=== PATIENT | male | born 1940 | race Caucasian/White ===

== ENCOUNTER 2019-09-15 20:48 | Inpatient (IN) | payer MEDICARE, MEDICAID ==
[~2019-09-15] VITALS: Ht 154.9 cm; Wt 50.0 kg
[2019-09-15 06:00] VITALS: BP 123/49
[2019-09-15] MEDS ORDERED: HALOPERIDOL LACTATE 5MG/ML VIAL IM ONE ×2 (21:15→21:20)
[2019-09-15 21:47] LABS: EOSINOPHILS % 1.6 % (0.0-5.0); HEMATOCRIT. 41.8 % (42.0-52.0); HEMOGLOBIN. 14.1 g/dL (14.0-18.0); LYMPHOCYTES % 18.2 % (20.0-50.0); MEAN CORPUSCULAR HEMOGLOBIN 31.2 pg (28.0-32.0); MEAN CORPUSCULAR VOLUME 92.6 fL (80.0-94.0); MEAN PLATELET VOLUME 7.8 fl (7.4-10.4); MONOCYTES % 10.5 % (2.0-8.0); NEUTROPHILS % 68.7 % (40.0-76.0); PLATELET 218 x1000/uL (130-400); RED BLOOD CELL COUNT 4.52 mill/uL (4.7-6.1); RED CELL DISTRIBUTION WIDTH 14.4 % (11.6-14.6)
[2019-09-15 21:53] LABS: PROTHROMBIN TIME 10.7 sec (9.6-11.0)
[2019-09-15 21:54] LABS: CHLORIDE 108 mEq/L (98-107)
[2019-09-15 23:10] LABS: CLARITY URINE CLEAR (CLEAR); COLOR URINE YELLOW (YELLOW); KETONES URINE TRACE (NEGATIVE); LEUKOCYTE ESTERASE URINE NEGATIVE (NEGATIVE); NITRITE URINE NEGATIVE (NEGATIVE); OCCULT BLOOD URINE 3+ (NEGATIVE); PH URINE 6.5 (4.5-8.0); PROTEIN URINE 1+ (NEGATIVE); SPECIFIC GRAVITY URINE 1.019 (1.005-1.030); UROBILINOGEN URINE 0.2 E.U./dL (0.2-1.0)
[2019-09-16] MEDS ORDERED: ACETAMINOPHEN 325MG TABLET PO PRN (00:30)
[2019-09-16] MEDS ORDERED: ONDANSETRON HCL 4MG/2ML INJ IV PRN (00:30)
[2019-09-16] MEDS ORDERED: RISPERIDONE 0.5MG TABLET PO PRN (00:30)
[2019-09-16 04:00] VITALS: BP 123/49
[2019-09-16] MEDS ORDERED: LORA2ORA5 PO (07:04)
[2019-09-16] MEDS ORDERED: SACU1TAB MT (07:04)
[2019-09-16] MEDS ORDERED: DONE10TA43 MT (07:04)
[2019-09-16] MEDS ORDERED: ASPI-1158 MT (07:04)
[2019-09-16] MEDS ORDERED: CARV25TA47 MT (07:04)
[2019-09-16] MEDS ORDERED: ATOR40TA70 MT (07:05)
[2019-09-16 08:00] VITALS: BP 120/57
[2019-09-16] MEDS ORDERED: HEPARIN 5000 UNITS/ML VIAL SUBCUT SCH (09:00)
[2019-09-16 12:00] VITALS: BP 100/48
[2019-09-16] MEDS ORDERED: ASPIRIN 81MG EC TABLET PO SCH (13:00)
[2019-09-16] MEDS ORDERED: RISP05 PO (14:03)
[2019-09-16 16:00] VITALS: BP_SYST 130; BP_SYST 147; BP_DIAS 72; BP_DIAS 90
[2019-09-16 17:35] VITALS: BP 147/90
[2019-09-16] MEDS ORDERED: ATORVASTATIN CALCIUM 40MG TABLET PO SCH (21:00)
== END 2019-09-16 18:20 | disposition home health service (06) | DRG 71 ==
LOC: ER 20:48 → 7WST 23:53 → ENRESERV 09-16 05:05
PROVIDERS: ADMIT Internal Medicine; ATTEND Internal Medicine
DX: G93.40 Encephalopathy, unspecified (principal); I50.22 Chronic systolic (congestive) heart failure; E78.5 Hyperlipidemia, unspecified; F03.90 Unspecified dementia, unspecified severity, without behavioral disturbance, psychotic disturbance, mood disturbance, and anxiety; I11.0 Hypertensive heart disease with heart failure; Z86.73 Personal history of transient ischemic attack (TIA), and cerebral infarction without residual deficits
CPT/HCPCS: 36415; 71045; 80053; 81003; 82962; 83735; 83880; 84484; 85025; 92610; 93005; 97162; 99285; J1630; J1644

== ENCOUNTER 2019-09-20 03:34 | Inpatient (IN) | payer MEDICARE, MEDICAID ==
[~2019-09-20] VITALS: Ht 167.6 cm; Wt 60.3 kg
[~2019-09-20 03:34] MED LIST: ASPI-1158 MT; ATOR40TA70 MT; RISP05 PO
[2019-09-20] MEDS ORDERED: SODIUM CHLORIDE 0.9% 1,000 ML IV ONE (03:51)
[2019-09-20] MEDS ORDERED: LORAZEPAM 2MG/ML CPJ IV STA (03:51)
[2019-09-20] MEDS ORDERED: LORAZEPAM 2MG/ML CPJ ONE (03:54)
[2019-09-20 04:25] LABS: BASOPHILS % 0.7 % (0.0-2.0); EOSINOPHILS % 1.7 % (0.0-5.0); HEMATOCRIT. 42.9 % (42.0-52.0); HEMOGLOBIN. 14.4 g/dL (14.0-18.0); LYMPHOCYTES % 13.7 % (20.0-50.0); MEAN CORPUSCULAR HEMOGLOBIN 31.3 pg (28.0-32.0); MEAN CORPUSCULAR VOLUME 93.5 fL (80.0-94.0); MEAN PLATELET VOLUME 7.9 fl (7.4-10.4); MONOCYTES % 14.3 % (2.0-8.0); NEUTROPHILS % 69.6 % (40.0-76.0); PLATELET 206 x1000/uL (130-400); RED BLOOD CELL COUNT 4.58 mill/uL (4.7-6.1); RED CELL DISTRIBUTION WIDTH 14.3 % (11.6-14.6)
[2019-09-20 04:30] LABS: CHLORIDE 107 mEq/L (98-107)
[2019-09-20 04:36] LABS: ETHANOL BLOOD < 10 mg/dL
[2019-09-20] MEDS ORDERED: SODIUM CHLORIDE 0.9% 1000ML BAG (SEPSIS BOLUS) IV ONE (04:45)
[2019-09-20] MEDS ORDERED: LEVOTHYROXINE SODIUM 25MCG TABLET PO NR (05:15)
[2019-09-20] MEDS ORDERED: LEVETIRACETAM 500MG PREMIX 100 ML IV ONE (05:30)
[2019-09-20 05:51] LABS: CLARITY URINE CLOUDY (CLEAR); COLOR URINE YELLOW (YELLOW); KETONES URINE TRACE (NEGATIVE); LEUKOCYTE ESTERASE URINE TRACE (NEGATIVE); NITRITE URINE NEGATIVE (NEGATIVE); OCCULT BLOOD URINE 2+ (NEGATIVE); PROTEIN URINE 1+ (NEGATIVE); SPECIFIC GRAVITY URINE 1.022 (1.005-1.030); UROBILINOGEN URINE 0.2 E.U./dL (0.2-1.0)
[2019-09-20 06:03] LABS: *AMPHETAMINES SCREEN URINE NEGATIVE (NEGATIVE); *BARBITURATES SCREEN URINE NEGATIVE (NEGATIVE); *BENZODIAZEPINES SCREEN URINE NEGATIVE (NEGATIVE); *COCAINE SCREEN URINE NEGATIVE (NEGATIVE)
[2019-09-20 06:04] LABS: CANNABINOID URINE SCREEN NEGATIVE (NEGATIVE); METHADONE URINE SCREEN NEGATIVE (NEGATIVE); OPIATES URINE SCREEN NEGATIVE (NEGATIVE); PHENCYCLIDINE URINE SCREEN NEGATIVE (NEGATIVE)
[2019-09-20] MEDS ORDERED: SODIUM CHLORIDE 0.9% 1,000 ML IV NR (09:15)
[2019-09-20] MEDS ORDERED: DOCUSATE SODIUM 100MG CAPSULE PO PRN (09:15)
[2019-09-20] MEDS ORDERED: ONDANSETRON HCL 4MG/2ML INJ IV PRN (09:15)
[2019-09-20] MEDS ORDERED: CLONIDINE 0.1MG TABLET PO PRN (09:15)
[2019-09-20] MEDS ORDERED: NITROGLYCERIN 0.4MG TABLET SL SL PRN (09:15)
[2019-09-20] MEDS ORDERED: IPRATROPIUM/ALBUTEROL 0.5-3(2.5)MG/3ML NEB NEB PRN (09:15)
[2019-09-20] MEDS ORDERED: GUAIFENESIN 200MG/10ML SUGAR FREE UDC PO PRN (09:15)
[2019-09-20] MEDS ORDERED: ACETAMINOPHEN 325MG TABLET PO PRN (09:15)
[2019-09-20] MEDS ORDERED: MAGNESIUM/ALUMINUM HYDROXIDE/SIMETHICONE 30ML UDC PO PRN (09:15)
[2019-09-20] MEDS: SODIUM CHLORIDE 0.9% 1,000 ML IV SCH ×2 (10:10→18:57)
[2019-09-20] MEDS ORDERED: ENOXAPARIN 40MG/0.4ML SYR SUBCUT NR (10:45)
[2019-09-20] MEDS ORDERED: LEVOFLOXACIN 500MG PREMIX 100 ML IV NR (10:45)
[2019-09-20 14:40] VITALS: BP 125/63
[2019-09-20 15:30] VITALS: BP 125/63
[2019-09-20 16:00] VITALS: BP 124/62
[2019-09-20] MEDS ORDERED: SACU1TAB PO (17:26)
[2019-09-20] MEDS ORDERED: CARV12.545 PO (17:27)
[2019-09-20] MEDS ORDERED: LORA2DIS6 PO (17:29)
[2019-09-20] MEDS: CEFTRIAXONE 1 G PREMIX 50 ML IV SCH (17:43)
[2019-09-20 20:00] VITALS: BP 140/51
[2019-09-20] MEDS: ZOLPIDEM TARTRATE 5MG TABLET PO PRN (20:02)
[2019-09-20] MEDS: ASCORBIC ACID 500 MG TABLET PO SCH (20:03)
[2019-09-20] MEDS: FAMOTIDINE 20MG TABLET PO SCH (20:03)
[2019-09-20] MEDS: KETOROLAC 15MG/ML VIAL IV PRN (22:04)
[2019-09-21] VITALS (8 sets, daily range): BP systolic 113–162; BP diastolic 53–139
[2019-09-21] MEDS: LEVOTHYROXINE SODIUM 25MCG TABLET PO SCH (06:16)
[2019-09-21] MEDS: SODIUM CHLORIDE 0.9% 1,000 ML IV SCH ×2 (06:16→14:52)
[2019-09-21] MEDS ORDERED: CEFTRIAXONE 1 G PREMIX 50 ML IV SCH (09:00)
[2019-09-21] MEDS ORDERED: LEVOFLOXACIN 500MG PREMIX 100 ML IV SCH (09:15)
[2019-09-21] MEDS: ZINC SULFATE 220 MG ( 50 ) CAPSULE PO SCH (09:31)
[2019-09-21] MEDS: ASPIRIN 325MG EC TABLET PO SCH (09:31)
[2019-09-21] MEDS: ASCORBIC ACID 500 MG TABLET PO SCH ×2 (09:31→21:05)
[2019-09-21 12:20] LABS: CREATINE KINASE MB FRACTION 1.8 ng/mL (0.5-3.6)
[2019-09-21] MEDS: LEVOFLOXACIN 250MG PREMIX 50 ML IV SCH (12:59)
[2019-09-21] MEDS ORDERED: ENOXAPARIN 40MG/0.4ML SYR SUBCUT SCH (13:00)
[2019-09-21] MEDS: KETOROLAC 15MG/ML VIAL IV PRN (14:51)
[2019-09-21] MEDS: CEFTRIAXONE 1 G PREMIX 50 ML IV SCH (17:10)
[2019-09-21] MEDS: FAMOTIDINE 20MG TABLET PO SCH (21:05)
[2019-09-21] MEDS: ZOLPIDEM TARTRATE 5MG TABLET PO PRN (21:05)
[2019-09-22] VITALS: BP 149/68
[2019-09-22 04:00] VITALS: BP 146/69
[2019-09-22] MEDS: KETOROLAC 15MG/ML VIAL IV PRN ×2 (04:15→18:33)
[2019-09-22] MEDS: LEVOTHYROXINE SODIUM 25MCG TABLET PO SCH (06:02)
[2019-09-22] MEDS: SODIUM CHLORIDE 0.9% 1,000 ML IV SCH ×2 (06:02→11:11)
[2019-09-22 06:31] LABS: HEMATOCRIT. 36.5 % (42.0-52.0); HEMOGLOBIN. 12.5 g/dL (14.0-18.0); MEAN CORPUSCULAR HEMOGLOBIN 31.6 pg (28.0-32.0); MEAN CORPUSCULAR VOLUME 92.6 fL (80.0-94.0); MEAN PLATELET VOLUME 7.8 fl (7.4-10.4); PLATELET 185 x1000/uL (130-400); RED BLOOD CELL COUNT 3.94 mill/uL (4.7-6.1); RED CELL DISTRIBUTION WIDTH 14.2 % (11.6-14.6)
[2019-09-22 06:43] LABS: CHLORIDE 115 mEq/L (98-107)
[2019-09-22 06:50] LABS: PHOSPHORUS 2.4 mg/dL (2.5-4.9)
[2019-09-22 08:00] VITALS: BP 144/69
[2019-09-22] MEDS: ASCORBIC ACID 500 MG TABLET PO SCH ×2 (08:35→20:19)
[2019-09-22] MEDS: ASPIRIN 325MG EC TABLET PO SCH (08:35)
[2019-09-22] MEDS: ZINC SULFATE 220 MG ( 50 ) CAPSULE PO SCH (08:35)
[2019-09-22] MEDS ORDERED: ENOXAPARIN 30MG/0.3ML SYR SUBCUT SCH (09:00)
[2019-09-22 14:04] LABS: PLATELET ESTIMATE NORMAL
[2019-09-22] MEDS: LEVOFLOXACIN 250MG PREMIX 50 ML IV SCH (14:35)
[2019-09-22] MEDS: CEFTRIAXONE 1 G PREMIX 50 ML IV SCH (17:09)
[2019-09-22 20:00] VITALS: BP 130/64
[2019-09-22] MEDS: ZOLPIDEM TARTRATE 5MG TABLET PO PRN (20:18)
[2019-09-22] MEDS: FAMOTIDINE 20MG TABLET PO SCH (20:19)
[2019-09-23] VITALS: BP 101/68
[2019-09-23] MEDS: SODIUM CHLORIDE 0.9% 1,000 ML IV SCH ×2 (01:18→07:06)
[2019-09-23 04:00] VITALS: BP 151/65
[2019-09-23] MEDS: LEVOTHYROXINE SODIUM 25MCG TABLET PO SCH (06:08)
[2019-09-23 08:00] VITALS: BP 151/76
[2019-09-23] MEDS: ASCORBIC ACID 500 MG TABLET PO SCH (08:34)
[2019-09-23] MEDS: ZINC SULFATE 220 MG ( 50 ) CAPSULE PO SCH (08:34)
[2019-09-23] MEDS: ASPIRIN 325MG EC TABLET PO SCH (08:34)
[2019-09-23] MEDS ORDERED: ENOXAPARIN 40MG/0.4ML SYR SUBCUT SCH (09:00)
[2019-09-23 11:53] VITALS: BP 151/76
[2019-09-23 12:00] VITALS: BP 101/66
[2019-09-23] MEDS: LEVOFLOXACIN 250MG PREMIX 50 ML IV SCH (13:30)
[2019-09-23 16:00] VITALS: BP 101/68
[2019-09-23] MEDS: CEFTRIAXONE 1 G PREMIX 50 ML IV SCH (16:00)
[2019-09-24] MEDS ORDERED: LEVOFLOXACIN 250MG TABLET PO SCH (11:00)
== END 2019-09-23 18:10 | disposition home health service (06) | DRG 871 ==
LOC: ER 03:34 → 5WST 05:58 → SUPCPDRO 09:04 → ENRESERV 12:44
PROVIDERS: ADMIT Internal Medicine; ATTEND Internal Medicine
DX: A41.9 Sepsis, unspecified organism (principal); G92 Toxic encephalopathy; R65.21 Severe sepsis with septic shock; N17.9 Acute kidney failure, unspecified; F03.90 Unspecified dementia, unspecified severity, without behavioral disturbance, psychotic disturbance, mood disturbance, and anxiety; I11.0 Hypertensive heart disease with heart failure; I50.9 Heart failure, unspecified; E03.9 Hypothyroidism, unspecified; R56.9 Unspecified convulsions; Z86.73 Personal history of transient ischemic attack (TIA), and cerebral infarction without residual deficits; Z95.0 Presence of cardiac pacemaker; Z79.899 Other long term (current) drug therapy
CPT/HCPCS: 36415; 71045; 80053; 80061; 80305; 80320; 81003; 82140; 82550; 82553; 82607; 82746; 82962; 83036; 83605; 83735; 84100; 84443; 84484; 85025; 93005; 93306; 93970; 97163; 97530; 99291; J0696; J1650; J1885; J1953; J1956; J2060; J7030; A4315; G0480

== ENCOUNTER 2019-09-27 16:49 | Inpatient (IN) | payer MEDICARE, MEDICAID ==
[~2019-09-27] VITALS: Ht 172.7 cm; Wt 62.9 kg
[~2019-09-27 16:49] MED LIST changes: +CARV12.545 PO; +LORA2DIS6 PO; +SACU1TAB PO
[2019-09-27] MEDS ORDERED: LEVETIRACETAM 500MG PREMIX 100 ML IV ONE ×2 (17:30)
[2019-09-27 17:37] LABS: BASOPHILS % 0.7 % (0.0-2.0); HEMOGLOBIN. 13.4 g/dL (14.0-18.0); LYMPHOCYTES % 11.9 % (20.0-50.0); MEAN CORPUSCULAR HEMOGLOBIN 31.3 pg (28.0-32.0); MEAN CORPUSCULAR VOLUME 93.1 fL (80.0-94.0); MEAN PLATELET VOLUME 7.5 fl (7.4-10.4); MONOCYTES % 13.6 % (2.0-8.0); NEUTROPHILS % 72.8 % (40.0-76.0); PLATELET 253 x1000/uL (130-400); RED CELL DISTRIBUTION WIDTH 14.3 % (11.6-14.6)
[2019-09-27 17:37] LABS: BG BASE EXCESS -0.8 mmol/L (-2.0-2.0); BG CARBOXYHEMOGLOBIN 0.2 % (0.5-1.5); BG DEOXYHEMOGLOBIN 0.7 % (0.0-5.0); BG FRACTION INSPIRED OXYGEN 100; BG HCO3 ACT 23.6 mmol/L (22.0-26.0); BG METHEMOGLOBIN 0.3 % (0.0-1.5); BG OXYGEN SATURATION 99.3 % (92.0-98.5); BG OXYHEMOGLOBIN 98.8 % (94.0-97.0); BG PCO2 38.1 mmHg (35.0-45.0); BG PO2 308.3 mmHg (75.0-100.0); BG SAMPLE SITE RIGHT BRACHIAL; BG TOTAL HEMOGLOBIN 13.3 g/dL (12.0-18.0); BG VENT MODE MASK - NRB
[2019-09-27 17:42] LABS: CHLORIDE 108 mEq/L (98-107)
[2019-09-27 17:47] LABS: ETHANOL BLOOD < 10 mg/dL
[2019-09-27 19:18] LABS: CLARITY URINE CLEAR (CLEAR); COLOR URINE YELLOW (YELLOW); KETONES URINE TRACE (NEGATIVE); LEUKOCYTE ESTERASE URINE NEGATIVE (NEGATIVE); NITRITE URINE NEGATIVE (NEGATIVE); OCCULT BLOOD URINE 2+ (NEGATIVE); PROTEIN URINE 1+ (NEGATIVE); SPECIFIC GRAVITY URINE 1.022 (1.005-1.030); UROBILINOGEN URINE 0.2 E.U./dL (0.2-1.0)
[2019-09-27] MEDS ORDERED: DIPHENHYDRAMINE 50MG/ML VIAL IV PRN (19:45)
[2019-09-27] MEDS ORDERED: CLONIDINE 0.1MG TABLET PO PRN (19:45)
[2019-09-27] MEDS ORDERED: LORAZEPAM 2MG/ML CPJ IV PRN (19:45)
[2019-09-27] MEDS ORDERED: ACETAMINOPHEN 325MG TABLET PO PRN (19:45)
[2019-09-27] MEDS ORDERED: ONDANSETRON HCL 4MG/2ML INJ IV PRN (19:45)
[2019-09-27] MEDS ORDERED: IPRATROPIUM/ALBUTEROL 0.5-3(2.5)MG/3ML NEB HHN PRN (19:45)
[2019-09-27] MEDS ORDERED: GUAIFENESIN 200MG/10ML SUGAR FREE UDC PO PRN (19:45)
[2019-09-27 19:48] LABS: *AMPHETAMINES SCREEN URINE NEGATIVE (NEGATIVE); *BARBITURATES SCREEN URINE NEGATIVE (NEGATIVE); *BENZODIAZEPINES SCREEN URINE PRESUMTIVE POSITIVE (NEGATIVE); *COCAINE SCREEN URINE NEGATIVE (NEGATIVE); METHADONE URINE SCREEN NEGATIVE (NEGATIVE); OPIATES URINE SCREEN PRESUMTIVE POSITIVE (NEGATIVE); PHENCYCLIDINE URINE SCREEN NEGATIVE (NEGATIVE)
[2019-09-27 19:49] LABS: CANNABINOID URINE SCREEN NEGATIVE (NEGATIVE)
[2019-09-27 20:02] LABS: PHOSPHORUS 2.3 mg/dL (2.5-4.9)
[2019-09-28] VITALS (9 sets, daily range): BP systolic 112–141; BP diastolic 55–79
[2019-09-28] MEDS ORDERED: LEVETIRACETAM 500MG PREMIX 100 ML IV SCH ×2 (09:00)
[2019-09-28 09:38] LABS: HEMATOCRIT. 37.8 % (42.0-52.0); MEAN CORPUSCULAR HEMOGLOBIN 31.7 pg (28.0-32.0); MEAN CORPUSCULAR VOLUME 92.5 fL (80.0-94.0); MEAN PLATELET VOLUME 7.5 fl (7.4-10.4); PLATELET 245 x1000/uL (130-400); RED BLOOD CELL COUNT 4.09 mill/uL (4.7-6.1); RED CELL DISTRIBUTION WIDTH 14.1 % (11.6-14.6)
[2019-09-28] MEDS: ENOXAPARIN 40MG/0.4ML SYR SUBCUT SCH (09:45)
[2019-09-28 10:00] LABS: CHLORIDE 110 mEq/L (98-107)
[2019-09-28 10:02] LABS: CREATINE KINASE MB FRACTION 1.8 ng/mL (0.5-3.6)
[2019-09-28 10:07] LABS: LDL CHOLESTEROL 75 mg/dL (5-100)
[2019-09-28 10:08] LABS: HDL CHOLESTEROL 47 mg/dL (40-59)
[2019-09-28 11:00] LABS: PLATELET ESTIMATE NORMAL
[2019-09-28] MEDS ORDERED: RISPERIDONE 0.5MG TABLET PO PRN (11:15)
[2019-09-28] MEDS ORDERED: LORAZEPAM 2MG/ML CPJ IV PRN (11:45)
[2019-09-28] MEDS: SODIUM CHLORIDE 0.9% 1,000 ML IV SCH (14:58)
[2019-09-28] MEDS: CARVEDILOL 12.5MG TABLET PO SCH (17:00)
[2019-09-28] MEDS: ATORVASTATIN CALCIUM 40MG TABLET PO SCH (21:00)
[2019-09-28] MEDS: SACUBITRIL/VALSARTAN 24/26 TAB PO SCH (21:00)
[2019-09-28] MEDS ORDERED: LEVO500T89 PO (21:21)
[2019-09-28] MEDS: LEVETIRACETAM 500MG in SODIUM CHLORIDE 0.9% 100ML IV SCH (22:05)
[2019-09-29] VITALS (12 sets, daily range): BP systolic 121–155; BP diastolic 57–75
[2019-09-29 07:08] LABS: BASOPHILS % 0.9 % (0.0-2.0); EOSINOPHILS % 2.9 % (0.0-5.0); HEMATOCRIT. 36.5 % (42.0-52.0); HEMOGLOBIN. 12.6 g/dL (14.0-18.0); LYMPHOCYTES % 16.2 % (20.0-50.0); MEAN CORPUSCULAR HEMOGLOBIN 32.1 pg (28.0-32.0); MEAN PLATELET VOLUME 7.7 fl (7.4-10.4); MONOCYTES % 13.6 % (2.0-8.0); NEUTROPHILS % 66.4 % (40.0-76.0); PLATELET 223 x1000/uL (130-400); RED BLOOD CELL COUNT 3.92 mill/uL (4.7-6.1); RED CELL DISTRIBUTION WIDTH 14.2 % (11.6-14.6)
[2019-09-29] MEDS: SODIUM CHLORIDE 0.9% 1,000 ML IV SCH ×2 (07:15→14:05)
[2019-09-29 07:40] LABS: CHLORIDE 111 mEq/L (98-107)
[2019-09-29 07:48] LABS: PHOSPHORUS 2.9 mg/dL (2.5-4.9); TOTAL IRON BINDING CAPACITY 318 ug/dL (250-450)
[2019-09-29] MEDS: LEVETIRACETAM 500MG in SODIUM CHLORIDE 0.9% 100ML IV SCH (08:18)
[2019-09-29] MEDS: ENOXAPARIN 40MG/0.4ML SYR SUBCUT SCH (08:18)
[2019-09-29] MEDS: SACUBITRIL/VALSARTAN 24/26 TAB PO SCH ×2 (09:00→20:15)
[2019-09-29] MEDS: ASPIRIN 81MG EC TABLET PO SCH (09:00)
[2019-09-29] MEDS: CARVEDILOL 12.5MG TABLET PO SCH ×2 (09:00→17:00)
[2019-09-29] MEDS ORDERED: POTASSIUM CHLORIDE 20MEQ/PACKET PO NR (10:00)
[2019-09-29] MEDS: KCL 20MEQ/100ML PREMIX 100 ML IV SCH ×2 (16:31→20:12)
[2019-09-29] MEDS: LEVETIRACETAM 500MG PREMIX 100 ML IV SCH (20:13)
[2019-09-29] MEDS: ATORVASTATIN CALCIUM 40MG TABLET PO SCH (20:15)
[2019-09-30] VITALS (12 sets, daily range): BP systolic 110–144; BP diastolic 57–76
[2019-09-30 07:17] LABS: BASOPHILS % 0.8 % (0.0-2.0); EOSINOPHILS % 3.7 % (0.0-5.0); HEMATOCRIT. 37.3 % (42.0-52.0); HEMOGLOBIN. 12.9 g/dL (14.0-18.0); MEAN CORPUSCULAR HEMOGLOBIN 31.8 pg (28.0-32.0); MEAN PLATELET VOLUME 7.6 fl (7.4-10.4); MONOCYTES % 13.3 % (2.0-8.0); NEUTROPHILS % 67.2 % (40.0-76.0); PLATELET 251 x1000/uL (130-400); RED BLOOD CELL COUNT 4.05 mill/uL (4.7-6.1)
[2019-09-30 07:51] LABS: CHLORIDE 110 mEq/L (98-107)
[2019-09-30] MEDS: ASPIRIN 81MG EC TABLET PO SCH (09:00)
[2019-09-30] MEDS: SACUBITRIL/VALSARTAN 24/26 TAB PO SCH ×2 (09:00→20:09)
[2019-09-30] MEDS: CARVEDILOL 12.5MG TABLET PO SCH ×2 (09:00→17:00)
[2019-09-30] MEDS: LEVETIRACETAM 500MG PREMIX 100 ML IV SCH (09:42)
[2019-09-30] MEDS: ENOXAPARIN 40MG/0.4ML SYR SUBCUT SCH (09:42)
[2019-09-30] MEDS: LEVETIRACETAM 750 MG in SODIUM CHLORIDE 0.9% 100 ML IV SCH ×2 (12:13→21:19)
[2019-09-30] MEDS: SODIUM CHLORIDE 0.9% 1,000 ML IV SCH (17:16)
[2019-09-30] MEDS: ATORVASTATIN CALCIUM 40MG TABLET PO SCH (20:09)
[2019-10-01] VITALS (10 sets, daily range): BP systolic 103–154; BP diastolic 44–73
[2019-10-01 06:45] LABS: CHLORIDE 109 mEq/L (98-107)
[2019-10-01 06:53] LABS: HEMATOCRIT. 39.9 % (42.0-52.0); HEMOGLOBIN. 13.8 g/dL (14.0-18.0); MEAN CORPUSCULAR HEMOGLOBIN 31.7 pg (28.0-32.0); MEAN CORPUSCULAR VOLUME 91.9 fL (80.0-94.0); MEAN PLATELET VOLUME 7.9 fl (7.4-10.4); PLATELET 245 x1000/uL (130-400); RED BLOOD CELL COUNT 4.34 mill/uL (4.7-6.1); RED CELL DISTRIBUTION WIDTH 13.6 % (11.6-14.6)
[2019-10-01] MEDS ORDERED: FERROUS SULFATE 325MG TABLET PO SCH (07:20)
[2019-10-01] MEDS ORDERED: ASCORBIC ACID 250 MG TABLET PO SCH (07:20)
[2019-10-01] MEDS: SACUBITRIL/VALSARTAN 24/26 TAB PO SCH (09:00)
[2019-10-01] MEDS: CARVEDILOL 12.5MG TABLET PO SCH (09:15)
[2019-10-01] MEDS: ASPIRIN 81MG EC TABLET PO SCH (09:15)
[2019-10-01] MEDS: ENOXAPARIN 40MG/0.4ML SYR SUBCUT SCH (09:16)
[2019-10-01] MEDS: LEVETIRACETAM 750 MG in SODIUM CHLORIDE 0.9% 100 ML IV SCH (09:16)
[2019-10-01 14:28] LABS: PLATELET ESTIMATE NORMAL
== END 2019-10-01 16:54 | DRG 101 ==
LOC: ER 16:49 → 3WST 18:43 → EDBEDREQ 19:08 → EDBEDREQTM 19:08 → ENRESERV 09-28 02:49 → 3WST 09-28 09:08
PROVIDERS: ADMIT Internal Medicine; ATTEND Internal Medicine
DX: G40.401 Other generalized epilepsy and epileptic syndromes, not intractable, with status epilepticus (principal); I42.0 Dilated cardiomyopathy; E87.2 Acidosis; I50.22 Chronic systolic (congestive) heart failure; F03.90 Unspecified dementia, unspecified severity, without behavioral disturbance, psychotic disturbance, mood disturbance, and anxiety; I11.0 Hypertensive heart disease with heart failure; E83.39 Other disorders of phosphorus metabolism; D72.821 Monocytosis (symptomatic); D64.9 Anemia, unspecified; R31.9 Hematuria, unspecified; R80.9 Proteinuria, unspecified; E78.00 Pure hypercholesterolemia, unspecified; Z86.73 Personal history of transient ischemic attack (TIA), and cerebral infarction without residual deficits; Z95.0 Presence of cardiac pacemaker; Z79.899 Other long term (current) drug therapy
CPT/HCPCS: 36415; 36600; 71045; 80048; 80053; 80061; 80305; 80307; 80320; 80329; 81003; 82140; 82375; 82550; 82553; 82728; 82805; 83540; 83550; 83605; 83735; 83880; 84100; 84443; 84484; 85025; 92610; 93005; 93970; 96365; 97162; 97166; 99291; J1650; J1953; J3480; J7030; J7050; G0480

== ENCOUNTER 2023-07-28 17:17 | Inpatient (IN) | payer MEDICARE, MEDICAID ==
[~2023-07-28] VITALS: Ht 167.6 cm; Wt 55.5 kg
[~2023-07-28 17:17] MED LIST changes: -ASPI-1158 MT; +ASPI-1406 MT; +LEVO-65 PO
[2023-07-28] MEDS ORDERED: ACETAMINOPHEN 325MG TABLET PO STA (17:24)
[2023-07-28] MEDS ORDERED: ACETAMINOPHEN 650MG SUPP PR STA (17:24)
[2023-07-28] MEDS ORDERED: VANCOMYCIN 1G PREMIX 200 ML IV ONE (17:30)
[2023-07-28] MEDS ORDERED: PIPERACILLIN/TAZ 3.375G PREMIX 50 ML IV ONE (17:30)
[2023-07-28] MEDS ORDERED: SODIUM CHLORIDE 0.9% 1,000 ML IV ONE (17:45)
[2023-07-28] MEDS ORDERED: VANCOMYCIN 1G PREMIX 200 ML IV NR (19:00)
[2023-07-28] MEDS ORDERED: PIPERACILLIN/TAZ 3.375G PREMIX 50 ML IV NR (19:00)
[2023-07-28 19:18] LABS: HEMOGLOBIN. 11.9 g/dL (14.0-18.0); MEAN CORPUSCULAR HEMOGLOBIN 29.9 pg (28.0-32.0); MEAN CORPUSCULAR HGB CONC 32.1 g/dL (31.0-37.0); MEAN CORPUSCULAR VOLUME 93.1 fL (80.0-94.0); MEAN PLATELET VOLUME 7.5 fl (7.4-10.4); PLATELET 270 x1000/uL (130-400); RED BLOOD CELL COUNT 3.97 mill/uL (4.7-6.1); RED CELL DISTRIBUTION WIDTH 13.8 % (11.6-14.6); WHITE BLOOD COUNT 6.3 x1000/uL (4.5-11.0)
[2023-07-28 19:19] LABS: DIFFERENTIAL COMMENT 1
[2023-07-28 19:36] LABS: ALANINE AMINOTRANSFERASE 18 IU/L (10-49); ALBUMIN 4.1 g/dL (3.2-4.8); ASPARTATE AMINOTRANSFERASE 25 IU/L (<34); BILIRUBIN TOTAL 0.5 mg/dL (0.1-1.0); CALCIUM 9.2 mg/dL (8.7-10.4); CARBON DIOXIDE 26 mEq/L (21-32); CHLORIDE 104 mEq/L (98-107); CREATINE KINASE 311 IU/L (46-171); CREATININE 1.4 mg/dL (0.6-1.3); ETHANOL BLOOD < 10 mg/dL (<10); GLUCOSE 97 mg/dL (70-105); POTASSIUM 4.6 mEq/L (3.5-5.1); PROTEIN TOTAL 7.7 g/dL (6.0-8.3); SODIUM 139 mEq/L (136-145); UREA NITROGEN BLOOD 15 mg/dL (9-23)
[2023-07-28 19:38] LABS: LACTIC ACID 2.2 mmol/L (0.4-2.0)
[2023-07-28 19:59] LABS: AMMONIA 25 uMol/L (<32)
[2023-07-28 23:05] LABS: PLATELET ESTIMATE NORMAL
[2023-07-29] VITALS (19 sets, daily range): BP systolic 87–142; BP diastolic 49–107; PULSE 60–80; RESP 12–21; TEMP 97.8–98.7
[2023-07-29] MEDS ORDERED: ACETAMINOPHEN 650MG SUPP PR NR (04:45)
[2023-07-29 05:54] LABS: *AMPHETAMINES SCREEN URINE NEGATIVE (NEGATIVE); *BARBITURATES SCREEN URINE NEGATIVE (NEGATIVE); *BENZODIAZEPINES SCREEN URINE NEGATIVE (NEGATIVE); *COCAINE SCREEN URINE NEGATIVE (NEGATIVE); CANNABINOID URINE SCREEN NEGATIVE (NEGATIVE); ECSTASY MDMA SCREEN URINE NEGATIVE (NEGATIVE); METHADONE URINE SCREEN Neg (NEGATIVE); OPIATES URINE SCREEN NEGATIVE (NEGATIVE); PHENCYCLIDINE URINE SCREEN NEGATIVE (NEGATIVE)
[2023-07-29 06:07] LABS: CLARITY URINE CLEAR (CLEAR); COLOR URINE YELLOW (YELLOW)
[2023-07-29 06:08] LABS: SPECIFIC GRAVITY URINE 1.015 (1.005-1.030)
[2023-07-29 06:24] LABS: PROTEIN URINE 1+ (NEGATIVE)
[2023-07-29 06:25] LABS: GLUCOSE URINE NEGATIVE (NEGATIVE); KETONES URINE NEGATIVE (NEGATIVE); LEUKOCYTE ESTERASE URINE NEGATIVE (NEGATIVE); NITRITE URINE NEGATIVE (NEGATIVE); OCCULT BLOOD URINE 2+ (NEGATIVE); UROBILINOGEN URINE 0.2 E.U./dL (0.2-1.0)
[2023-07-29 07:19] LABS: SQUAMOUS EPITHELIAL CELL URINE FEW /lpf (RARE/1+)
[2023-07-29 07:20] LABS: BACTERIA URINE NONE SEEN; RBC URINE 0-2 /hpf (0-2)
[2023-07-29] MEDS: CARVEDILOL 6.25 MG TABLET PO SCH ×2 (09:00→21:00)
[2023-07-29] MEDS: ASPIRIN 81MG EC TABLET PO SCH (09:00)
[2023-07-29] MEDS ORDERED: NOREPINEPHRINE 8MG/250ML PMX 250 ML IV PRN (10:30)
[2023-07-29] MEDS ORDERED: ENOXAPARIN 40MG/0.4ML SYR SUBCUT SCH (11:30)
[2023-07-29] MEDS ORDERED: IPRATROPIUM/ALBUTEROL 0.5-3(2.5)MG/3ML NEB NEB PRN (11:30)
[2023-07-29] MEDS ORDERED: ONDANSETRON HCL 4MG/2ML INJ IV PRN (11:30)
[2023-07-29] MEDS: DEXT 5%/0.45% NACL 1000ML 1,000 ML IV SCH (11:54)
[2023-07-29] MEDS: ENOXAPARIN 30MG/0.3ML SYR SUBCUT SCH (12:00)
[2023-07-29] MEDS ORDERED: ALBUTEROL 6.7GM HFA INHALER ORI PRN (13:30)
[2023-07-29] MEDS: ATORVASTATIN CALCIUM 40MG TABLET PO SCH (21:18)
[2023-07-30] VITALS (39 sets, daily range): BP systolic 80–127; BP diastolic 47–84; PULSE 60–70; RESP 11–21; TEMP 97.5–98.7
[2023-07-30 00:40] LABS: CALCIUM 8.5 mg/dL (8.7-10.4); CREATININE 1.3 mg/dL (0.6-1.3); POTASSIUM 4.2 mEq/L (3.5-5.1)
[2023-07-30 01:20] LABS: HEPATITIS B SURFACE ANTIGEN NEGATIVE (Negative); HEPATITIS C AB NON REACTIVE (Neg) (Negative)
[2023-07-30 05:07] LABS: BASOPHILS % 0.1 % (0.0-2.0); HEMATOCRIT. 34.7 % (42.0-52.0); HEMOGLOBIN. 11.6 g/dL (14.0-18.0); LYMPHOCYTES % 7.3 % (20.0-50.0); MEAN CORPUSCULAR HEMOGLOBIN 30.5 pg (28.0-32.0); MEAN CORPUSCULAR HGB CONC 33.4 g/dL (31.0-37.0); MEAN CORPUSCULAR VOLUME 91.4 fL (80.0-94.0); MEAN PLATELET VOLUME 7.5 fl (7.4-10.4); MONOCYTES % 8.6 % (2.0-8.0); PLATELET 253 x1000/uL (130-400); RED BLOOD CELL COUNT 3.79 mill/uL (4.7-6.1); RED CELL DISTRIBUTION WIDTH 13.8 % (11.6-14.6); WHITE BLOOD COUNT 7.3 x1000/uL (4.5-11.0)
[2023-07-30 05:58] LABS: TROPONIN I HIGH SENSITIVITY 81 ng/L (3.0-53)
[2023-07-30] MEDS: CARVEDILOL 6.25 MG TABLET PO SCH (08:50)
[2023-07-30] MEDS: ASPIRIN 81MG EC TABLET PO SCH (08:51)
[2023-07-30 09:55] LABS: CALCIUM 8.4 mg/dL (8.7-10.4); CARBON DIOXIDE 25 mEq/L (21-32); CHLORIDE 106 mEq/L (98-107); CREATININE 1.4 mg/dL (0.6-1.3); GLUCOSE 115 mg/dL (70-105); POTASSIUM 3.8 mEq/L (3.5-5.1); SODIUM 142 mEq/L (136-145); T4 FREE 0.95 ng/dL (0.89-1.76); THYROID STIMULATING HORMONE 7.07 uIU/mL (0.55-4.78); UREA NITROGEN BLOOD 20 mg/dL (9-23)
[2023-07-30] MEDS ORDERED: DEXAMETHASONE 4MG/ML 1ML VIAL IV NR (10:15)
[2023-07-30] MEDS ORDERED: ALBUMIN HUMAN 12.5G/250ML (5%) IV PRN (10:15)
[2023-07-30] MEDS ORDERED: AZITHROMYCIN 500 MG TABLET PO NR (10:30)
[2023-07-30] MEDS: DEXT 5%/0.45% NACL 1000ML 1,000 ML IV SCH ×2 (10:30→23:59)
[2023-07-30] MEDS ORDERED: CEFTRIAXONE 2GM/50ML (ADDEASE) 50 ML IV SCH (10:30)
[2023-07-30] MEDS: ENOXAPARIN 30MG/0.3ML SYR SUBCUT SCH (11:14)
[2023-07-30] MEDS: CEFTRIAXONE 2 G in DEXTROSE 5% WATER 50 ML IV SCH (11:17)
[2023-07-30] MEDS ORDERED: VANCOMYCIN 750MG PREMIX 150 ML IV SCH (16:00)
[2023-07-30] MEDS: ATORVASTATIN CALCIUM 40MG TABLET PO SCH (20:40)
[2023-07-30] MEDS ORDERED: ATORVASTATIN CALCIUM 40MG TABLET PO SCH (21:00)
[2023-07-31] VITALS (71 sets, daily range): BP systolic 68–152; BP diastolic 42–82; PULSE 59–70; RESP 10–23; TEMP 96.7–98.5
[2023-07-31] MEDS ORDERED: NOREPINEPHRINE 8MG/250ML PMX 250 ML IV PRN (00:35)
[2023-07-31 05:37] LABS: ALANINE AMINOTRANSFERASE 80 IU/L (10-49); ALBUMIN 3.3 g/dL (3.2-4.8); ASPARTATE AMINOTRANSFERASE 155 IU/L (<34); BILIRUBIN TOTAL 0.6 mg/dL (0.1-1.0); CALCIUM 8.4 mg/dL (8.7-10.4); CARBON DIOXIDE 24 mEq/L (21-32); CHLORIDE 107 mEq/L (98-107); CREATININE 1.1 mg/dL (0.6-1.3); GLUCOSE 236 mg/dL (70-105); POTASSIUM 3.3 mEq/L (3.5-5.1); PROTEIN TOTAL 6.2 g/dL (6.0-8.3); SODIUM 140 mEq/L (136-145); UREA NITROGEN BLOOD 25 mg/dL (9-23)
[2023-07-31 05:40] LABS: HEMOGLOBIN. 10.8 g/dL (14.0-18.0); MEAN CORPUSCULAR HEMOGLOBIN 30.1 pg (28.0-32.0); MEAN CORPUSCULAR HGB CONC 32.9 g/dL (31.0-37.0); MEAN CORPUSCULAR VOLUME 91.6 fL (80.0-94.0); MEAN PLATELET VOLUME 7.9 fl (7.4-10.4); PLATELET 270 x1000/uL (130-400)
[2023-07-31 08:33] LABS: DIFFERENTIAL COMMENT 1
[2023-07-31] MEDS: DEXAMETHASONE 4MG/ML 1ML VIAL IV SCH (08:48)
[2023-07-31] MEDS: AZITHROMYCIN 500 MG TABLET PO SCH (08:48)
[2023-07-31] MEDS: ASPIRIN 81MG EC TABLET PO SCH (08:48)
[2023-07-31] MEDS: VANCOMYCIN 500MG PREMIX 100 ML IV SCH ×2 (08:52→20:12)
[2023-07-31] MEDS ORDERED: ASPIRIN 81MG EC TABLET PO SCH (09:00)
[2023-07-31] MEDS ORDERED: LIDOCAINE HCL 1% 10 MG/ML 10ML VIAL ONE (09:12)
[2023-07-31] MEDS ORDERED: POTASSIUM CHLORIDE 20MEQ/PACKET PO NR (09:45)
[2023-07-31] MEDS: CEFTRIAXONE 2 G in DEXTROSE 5% WATER 50 ML IV SCH (12:41)
[2023-07-31] MEDS: MIDODRINE HCL 5MG TABLET PO SCH ×2 (12:41→16:55)
[2023-07-31] MEDS: ENOXAPARIN 30MG/0.3ML SYR SUBCUT SCH (12:42)
[2023-07-31 14:13] LABS: PLATELET ESTIMATE NORMAL
[2023-07-31] MEDS: DEXT 5%/0.45% NACL 1000ML 1,000 ML IV SCH (18:19)
[2023-07-31] MEDS: ATORVASTATIN CALCIUM 40MG TABLET PO SCH (20:12)
[2023-08-01] VITALS (14 sets, daily range): BP systolic 97–150; BP diastolic 56–128; PULSE 59–68; RESP 12–23; TEMP 97.4–98.9
[2023-08-01 05:18] LABS: HEMATOCRIT. 31.2 % (42.0-52.0); HEMOGLOBIN. 10.3 g/dL (14.0-18.0); MEAN CORPUSCULAR HEMOGLOBIN 30.6 pg (28.0-32.0); MEAN CORPUSCULAR VOLUME 92.7 fL (80.0-94.0); MEAN PLATELET VOLUME 7.9 fl (7.4-10.4); PLATELET 245 x1000/uL (130-400); RED BLOOD CELL COUNT 3.36 mill/uL (4.7-6.1); RED CELL DISTRIBUTION WIDTH 13.9 % (11.6-14.6); WHITE BLOOD COUNT 8.8 x1000/uL (4.5-11.0)
[2023-08-01 05:49] LABS: DIFFERENTIAL COMMENT 1
[2023-08-01 05:50] LABS: CALCIUM 8.5 mg/dL (8.7-10.4); CARBON DIOXIDE 25 mEq/L (21-32); CHLORIDE 107 mEq/L (98-107); GLUCOSE 117 mg/dL (70-105); POTASSIUM 3.8 mEq/L (3.5-5.1); SODIUM 141 mEq/L (136-145); UREA NITROGEN BLOOD 23 mg/dL (9-23)
[2023-08-01] MEDS: DEXT 5%/0.45% NACL 1000ML 1,000 ML IV SCH (06:12)
[2023-08-01] MEDS: ASPIRIN 81MG EC TABLET PO SCH (08:21)
[2023-08-01] MEDS: AZITHROMYCIN 500 MG TABLET PO SCH (08:21)
[2023-08-01] MEDS: DEXAMETHASONE 4MG/ML 1ML VIAL IV SCH (08:21)
[2023-08-01] MEDS: VANCOMYCIN 500MG PREMIX 100 ML IV SCH (08:21)
[2023-08-01] MEDS: MIDODRINE HCL 5MG TABLET PO SCH ×3 (08:21→16:47)
[2023-08-01 09:02] LABS: HEMATOCRIT 31.1 % (42.0-52.0); HEMOGLOBIN 10.5 g/dL (14.0-18.0); MEAN CORPUSCULAR HEMOGLOBIN 30.4 pg (28.0-32.0); MEAN CORPUSCULAR HGB CONC 33.9 g/dL (31.0-37.0); MEAN CORPUSCULAR VOLUME 89.7 fL (80.0-94.0); PLATELET 247 x1000/uL (130-400); RED BLOOD CELL COUNT 3.47 mill/uL (4.7-6.1); WHITE BLOOD COUNT 8.5 x1000/uL (4.5-11.0)
[2023-08-01] MEDS: ENOXAPARIN 30MG/0.3ML SYR SUBCUT SCH (11:29)
[2023-08-01] MEDS: CEFTRIAXONE 2 G in DEXTROSE 5% WATER 50 ML IV SCH (11:29)
[2023-08-01 14:22] LABS: PLATELET ESTIMATE NORMAL
[2023-08-01] MEDS: ATORVASTATIN CALCIUM 40MG TABLET PO SCH (22:43)
[2023-08-02] VITALS (11 sets, daily range): BP systolic 111–134; BP diastolic 59–79; PULSE 60–63; RESP 13–21; TEMP 97.5–98.5
[2023-08-02 07:15] LABS: HEMATOCRIT. 29.8 % (42.0-52.0); HEMOGLOBIN. 10.1 g/dL (14.0-18.0); MEAN CORPUSCULAR HEMOGLOBIN 30.1 pg (28.0-32.0); MEAN CORPUSCULAR HGB CONC 33.9 g/dL (31.0-37.0); MEAN CORPUSCULAR VOLUME 88.9 fL (80.0-94.0); MEAN PLATELET VOLUME 8.2 fl (7.4-10.4); PLATELET 241 x1000/uL (130-400); RED BLOOD CELL COUNT 3.35 mill/uL (4.7-6.1); RED CELL DISTRIBUTION WIDTH 13.9 % (11.6-14.6); WHITE BLOOD COUNT 9.7 x1000/uL (4.5-11.0)
[2023-08-02 07:19] LABS: PROTHROMBIN TIME 11.1 sec (9.6-11.0)
[2023-08-02 07:55] LABS: DIFFERENTIAL COMMENT 1
[2023-08-02] MEDS: AZITHROMYCIN 500 MG TABLET PO SCH (08:16)
[2023-08-02] MEDS: ASPIRIN 81MG EC TABLET PO SCH (08:16)
[2023-08-02] MEDS: MIDODRINE HCL 5MG TABLET PO SCH ×3 (08:17→17:48)
[2023-08-02] MEDS: DEXAMETHASONE 4MG/ML 1ML VIAL IV SCH (08:18)
[2023-08-02 08:51] LABS: ALANINE AMINOTRANSFERASE 113 IU/L (10-49); ALBUMIN 2.9 g/dL (3.2-4.8); ASPARTATE AMINOTRANSFERASE 115 IU/L (<34); BILIRUBIN DIRECT 0.1 mg/dL (<=3.0); BILIRUBIN TOTAL 0.3 mg/dL (0.1-1.0); CALCIUM 7.9 mg/dL (8.7-10.4); CARBON DIOXIDE 24 mEq/L (21-32); CHLORIDE 104 mEq/L (98-107); IRON 36 ug/dL (65-175); POTASSIUM 3.7 mEq/L (3.5-5.1); PROTEIN TOTAL 5.1 g/dL (6.0-8.3); SODIUM 135 mEq/L (136-145); TOTAL IRON BINDING CAPACITY 265 ug/dl (250-425); UREA NITROGEN BLOOD 26 mg/dL (9-23)
[2023-08-02 09:54] LABS: GLUCOSE 372 mg/dL (70-105)
[2023-08-02] MEDS: ENOXAPARIN 30MG/0.3ML SYR SUBCUT SCH (12:08)
[2023-08-02] MEDS: CEFTRIAXONE 2 G in DEXTROSE 5% WATER 50 ML IV SCH (12:10)
[2023-08-02 12:21] LABS: FERRITIN 502 ng/mL (22-322); FOLIC ACID (FOLATE) SERUM 5.73 ng/mL (>5.38); HEPATITIS A AB IGM NEGATIVE (Negative); HEPATITIS B CORE AB IGM NEGATIVE (Negative); HEPATITIS B SURFACE ANTIGEN NEGATIVE (Negative); HEPATITIS C AB NON REACTIVE (Neg) (Negative); VITAMIN B12 SERUM 839 pg/mL (211-911)
[2023-08-02] MEDS: ACETAMINOPHEN 325MG TABLET PO PRN (17:59)
[2023-08-02 18:19] LABS: PLATELET ESTIMATE NORMAL
[2023-08-02] MEDS: ATORVASTATIN CALCIUM 40MG TABLET PO SCH (20:55)
[2023-08-03] VITALS (9 sets, daily range): BP systolic 103–155; BP diastolic 57–86; PULSE 60–69; RESP 11–26; TEMP 97.2–97.8
[2023-08-03] MEDS: AZITHROMYCIN 500 MG TABLET PO SCH (10:13)
[2023-08-03] MEDS: ACETAMINOPHEN 325MG TABLET PO PRN (10:13)
[2023-08-03] MEDS: DEXAMETHASONE 10 MG/ML VIAL IV SCH (10:13)
[2023-08-03] MEDS: ASPIRIN 81MG EC TABLET PO SCH (10:13)
[2023-08-03] MEDS: MIDODRINE HCL 5MG TABLET PO SCH ×3 (10:15→17:45)
[2023-08-03] MEDS: CEFTRIAXONE 2 G in DEXTROSE 5% WATER 50 ML IV SCH (14:07)
[2023-08-03] MEDS: ENOXAPARIN 30MG/0.3ML SYR SUBCUT SCH (14:07)
[2023-08-03] MEDS ORDERED: ONDANSETRON 4MG ODT PO PRN (16:13)
[2023-08-04 08:00] VITALS: BP 147/70; RESP 11; TEMP 97.8
[2023-08-04] MEDS: DEXAMETHASONE 10 MG/ML VIAL IV SCH (09:09)
[2023-08-04] MEDS: ASPIRIN 81MG EC TABLET PO SCH (09:09)
[2023-08-04] MEDS: MIDODRINE HCL 5MG TABLET PO SCH ×4 (09:10→16:43)
[2023-08-04 09:15] LABS: HEMOGLOBIN. 10.9 g/dL (14.0-18.0); MEAN CORPUSCULAR HEMOGLOBIN 30.3 pg (28.0-32.0); MEAN CORPUSCULAR HGB CONC 34.1 g/dL (31.0-37.0); MEAN CORPUSCULAR VOLUME 88.7 fL (80.0-94.0); MEAN PLATELET VOLUME 8.3 fl (7.4-10.4); PLATELET 249 x1000/uL (130-400); RED BLOOD CELL COUNT 3.61 mill/uL (4.7-6.1); RED CELL DISTRIBUTION WIDTH 13.6 % (11.6-14.6); WHITE BLOOD COUNT 6.5 x1000/uL (4.5-11.0)
[2023-08-04 09:22] LABS: DIFFERENTIAL COMMENT 1
[2023-08-04 09:44] LABS: CALCIUM 8.4 mg/dL (8.7-10.4); CARBON DIOXIDE 30 mEq/L (21-32); CHLORIDE 103 mEq/L (98-107); CREATININE 0.9 mg/dL (0.6-1.3); POTASSIUM 4.5 mEq/L (3.5-5.1); SODIUM 140 mEq/L (136-145); UREA NITROGEN BLOOD 20 mg/dL (9-23)
[2023-08-04 10:13] LABS: GLUCOSE 128 mg/dL (70-105)
[2023-08-04] MEDS: CEFTRIAXONE 2 G in DEXTROSE 5% WATER 50 ML IV SCH (11:52)
[2023-08-04] MEDS: ENOXAPARIN 30MG/0.3ML SYR SUBCUT SCH (11:52)
[2023-08-04 12:00] VITALS: BP 132/65; PULSE 60; RESP 11; TEMP 98
[2023-08-04 16:00] VITALS: BP 132/88; PULSE 65; RESP 12; TEMP 97.1
[2023-08-04 16:41] LABS: PLATELET ESTIMATE NORMAL
[2023-08-04] MEDS: ACETAMINOPHEN 325MG TABLET PO PRN (17:04)
[2023-08-04 20:00] VITALS: BP 146/84; PULSE 64; RESP 11; TEMP 97.9
[2023-08-04] MEDS: ATORVASTATIN CALCIUM 40MG TABLET PO SCH (21:52)
[2023-08-04 22:00] VITALS: BP 149/85; PULSE 63; RESP 9
[2023-08-05] VITALS (9 sets, daily range): BP systolic 102–135; BP diastolic 51–70; PULSE 60–64; RESP 10–15; TEMP 97.3–98.2
[2023-08-05 08:55] LABS: HEMATOCRIT. 29.6 % (42.0-52.0); HEMOGLOBIN. 9.8 g/dL (14.0-18.0); MEAN CORPUSCULAR HEMOGLOBIN 29.9 pg (28.0-32.0); MEAN CORPUSCULAR VOLUME 90.4 fL (80.0-94.0); RED BLOOD CELL COUNT 3.27 mill/uL (4.7-6.1); RED CELL DISTRIBUTION WIDTH 13.5 % (11.6-14.6)
[2023-08-05 09:02] LABS: DIFFERENTIAL COMMENT 1
[2023-08-05] MEDS: ASPIRIN 81MG EC TABLET PO SCH (09:07)
[2023-08-05] MEDS: MIDODRINE HCL 5MG TABLET PO SCH ×3 (09:07→17:25)
[2023-08-05] MEDS: DEXAMETHASONE 10 MG/ML VIAL IV SCH (09:07)
[2023-08-05 09:09] LABS: CALCIUM 8.3 mg/dL (8.7-10.4); CARBON DIOXIDE 31 mEq/L (21-32); CHLORIDE 102 mEq/L (98-107); CREATININE 0.9 mg/dL (0.6-1.3); GLUCOSE 138 mg/dL (70-105); POTASSIUM 4.7 mEq/L (3.5-5.1); SODIUM 139 mEq/L (136-145); UREA NITROGEN BLOOD 21 mg/dL (9-23)
[2023-08-05 10:38] LABS: PLATELET ESTIMATE NORMAL
[2023-08-05 10:39] LABS: MEAN PLATELET VOLUME 8.8 fl (7.4-10.4); PLATELET 286 x1000/uL (130-400)
[2023-08-05] MEDS: ENOXAPARIN 30MG/0.3ML SYR SUBCUT SCH (12:26)
[2023-08-05] MEDS: CEFTRIAXONE 2 G in DEXTROSE 5% WATER 50 ML IV SCH (12:26)
[2023-08-05] MEDS: ACETAMINOPHEN 325MG TABLET PO PRN (17:55)
[2023-08-05] MEDS: ATORVASTATIN CALCIUM 40MG TABLET PO SCH (21:32)
[2023-08-06] VITALS (8 sets, daily range): BP systolic 97–147; BP diastolic 53–94; PULSE 60–69; RESP 12–19; TEMP 97–97.9
[2023-08-06 05:17] LABS: HEMATOCRIT. 28.5 % (42.0-52.0); HEMOGLOBIN. 9.6 g/dL (14.0-18.0); MEAN CORPUSCULAR HEMOGLOBIN 30.2 pg (28.0-32.0); MEAN CORPUSCULAR HGB CONC 33.8 g/dL (31.0-37.0); MEAN CORPUSCULAR VOLUME 89.2 fL (80.0-94.0); MEAN PLATELET VOLUME 7.9 fl (7.4-10.4); PLATELET 322 x1000/uL (130-400); RED CELL DISTRIBUTION WIDTH 13.7 % (11.6-14.6); WHITE BLOOD COUNT 7.4 x1000/uL (4.5-11.0)
[2023-08-06 05:32] LABS: CALCIUM 8.2 mg/dL (8.7-10.4); CARBON DIOXIDE 33 mEq/L (21-32); CHLORIDE 101 mEq/L (98-107); CREATININE 0.8 mg/dL (0.6-1.3); GLUCOSE 132 mg/dL (70-105); POTASSIUM 4.4 mEq/L (3.5-5.1); SODIUM 138 mEq/L (136-145); UREA NITROGEN BLOOD 30 mg/dL (9-23)
[2023-08-06 06:49] LABS: DIFFERENTIAL COMMENT 1
[2023-08-06] MEDS: ASPIRIN 81MG EC TABLET PO SCH (09:25)
[2023-08-06] MEDS: DEXAMETHASONE 10 MG/ML VIAL IV SCH (09:25)
[2023-08-06] MEDS: MIDODRINE HCL 5MG TABLET PO SCH ×3 (09:26→17:00)
[2023-08-06] MEDS ORDERED: GUAIFENESIN 200MG/10ML SUGAR FREE UDC PO PRN (11:30)
[2023-08-06] MEDS: ENOXAPARIN 30MG/0.3ML SYR SUBCUT SCH (12:55)
[2023-08-06 17:42] LABS: PLATELET ESTIMATE NORMAL
[2023-08-06 17:44] LABS: OVALOCYTES 1+
[2023-08-06] MEDS: ATORVASTATIN CALCIUM 40MG TABLET PO SCH (21:53)
[2023-08-07] VITALS: BP 110/69; PULSE 64; RESP 14; TEMP 97.9
[2023-08-07 04:00] VITALS: BP 159/57; PULSE 6; RESP 16; TEMP 97.6
[2023-08-07 06:54] LABS: CALCIUM 8.3 mg/dL (8.7-10.4); CARBON DIOXIDE 32 mEq/L (21-32); CHLORIDE 101 mEq/L (98-107); CREATININE 0.9 mg/dL (0.6-1.3); GLUCOSE 122 mg/dL (70-105); POTASSIUM 4.6 mEq/L (3.5-5.1); SODIUM 138 mEq/L (136-145); UREA NITROGEN BLOOD 24 mg/dL (9-23)
[2023-08-07 07:13] LABS: HEMATOCRIT. 28.1 % (42.0-52.0); HEMOGLOBIN. 9.1 g/dL (14.0-18.0); MEAN CORPUSCULAR HEMOGLOBIN 29.9 pg (28.0-32.0); MEAN CORPUSCULAR HGB CONC 32.4 g/dL (31.0-37.0); MEAN CORPUSCULAR VOLUME 92.2 fL (80.0-94.0); MEAN PLATELET VOLUME 8.4 fl (7.4-10.4); PLATELET 346 x1000/uL (130-400); RED BLOOD CELL COUNT 3.05 mill/uL (4.7-6.1); RED CELL DISTRIBUTION WIDTH 14.1 % (11.6-14.6); WHITE BLOOD COUNT 9.1 x1000/uL (4.5-11.0)
[2023-08-07 07:17] LABS: DIFFERENTIAL COMMENT 1
[2023-08-07 08:00] VITALS: BP 126/69; PULSE 69; RESP 20; TEMP 98
[2023-08-07] MEDS: DEXAMETHASONE 10 MG/ML VIAL IV SCH (09:00)
[2023-08-07 12:00] VITALS: BP 120/59; PULSE 72; RESP 18; TEMP 98.2
[2023-08-07] MEDS: ASPIRIN 81MG EC TABLET PO SCH (12:15)
[2023-08-07] MEDS: MIDODRINE HCL 5MG TABLET PO SCH (12:15)
[2023-08-07] MEDS: ENOXAPARIN 30MG/0.3ML SYR SUBCUT SCH (12:16)
[2023-08-07 16:00] VITALS: BP 132/70; PULSE 75; RESP 19; TEMP 97.7
[2023-08-07 20:00] VITALS: BP 115/51; PULSE 77; RESP 18; TEMP 98
[2023-08-07 20:30] LABS: PLATELET ESTIMATE NORMAL
[2023-08-07 20:32] LABS: OVALOCYTES 1+
[2023-08-07 20:34] LABS: GIANT PLATELETS FEW
[2023-08-07] MEDS: ATORVASTATIN CALCIUM 40MG TABLET PO SCH (21:30)
[2023-08-08] VITALS: BP 115/56; PULSE 67; RESP 15; TEMP 98.5
[2023-08-08 04:00] VITALS: BP 129/71; PULSE 68; RESP 19; TEMP 98
[2023-08-08 05:53] LABS: HEMATOCRIT. 28.3 % (42.0-52.0); HEMOGLOBIN. 9.2 g/dL (14.0-18.0); MEAN CORPUSCULAR HEMOGLOBIN 29.9 pg (28.0-32.0); MEAN CORPUSCULAR HGB CONC 32.7 g/dL (31.0-37.0); MEAN CORPUSCULAR VOLUME 91.6 fL (80.0-94.0); MEAN PLATELET VOLUME 7.3 fl (7.4-10.4); PLATELET 388 x1000/uL (130-400); RED BLOOD CELL COUNT 3.09 mill/uL (4.7-6.1); RED CELL DISTRIBUTION WIDTH 13.9 % (11.6-14.6); WHITE BLOOD COUNT 11.7 x1000/uL (4.5-11.0)
[2023-08-08 05:59] LABS: DIFFERENTIAL COMMENT 1
[2023-08-08 06:02] LABS: CALCIUM 8.1 mg/dL (8.7-10.4); CARBON DIOXIDE 30 mEq/L (21-32); CHLORIDE 102 mEq/L (98-107); CREATININE 0.9 mg/dL (0.6-1.3); GLUCOSE 79 mg/dL (70-105); SODIUM 140 mEq/L (136-145); UREA NITROGEN BLOOD 25 mg/dL (9-23)
[2023-08-08 08:00] VITALS: BP 105/48; PULSE 52; RESP 18; TEMP 97.4
[2023-08-08] MEDS: ASPIRIN 81MG EC TABLET PO SCH (09:45)
[2023-08-08] MEDS: DEXAMETHASONE 10 MG/ML VIAL IV SCH (09:45)
[2023-08-08 10:46] LABS: PLATELET ESTIMATE NORMAL
[2023-08-08 12:00] VITALS: BP 131/59; PULSE 48; RESP 18; TEMP 98.5
[2023-08-08] MEDS: MIDODRINE HCL 5MG TABLET PO SCH ×2 (12:39→17:00)
[2023-08-08] MEDS: ENOXAPARIN 30MG/0.3ML SYR SUBCUT SCH (12:50)
[2023-08-08 16:00] VITALS: BP 128/58; PULSE 50; RESP 18; TEMP 97.8
[2023-08-08 20:39] VITALS: BP 127/65; PULSE 81; RESP 20; TEMP 98.8
[2023-08-08] MEDS: ATORVASTATIN CALCIUM 40MG TABLET PO SCH (21:54)
[2023-08-09 00:25] VITALS: BP 107/51; PULSE 67; RESP 20; TEMP 98.6
[2023-08-09 04:00] VITALS: BP_SYST 105; BP_SYST 158; BP_DIAS 48; BP_DIAS 49; PULSE 54; PULSE 66; RESP 19; RESP 20; TEMP 97.9; TEMP 98.2
[2023-08-09 07:28] LABS: HEMATOCRIT. 26.2 % (42.0-52.0); HEMOGLOBIN. 8.8 g/dL (14.0-18.0); MEAN CORPUSCULAR HEMOGLOBIN 30.2 pg (28.0-32.0); MEAN CORPUSCULAR HGB CONC 33.6 g/dL (31.0-37.0); MEAN CORPUSCULAR VOLUME 89.9 fL (80.0-94.0); MEAN PLATELET VOLUME 7.4 fl (7.4-10.4); PLATELET 410 x1000/uL (130-400); RED BLOOD CELL COUNT 2.91 mill/uL (4.7-6.1); RED CELL DISTRIBUTION WIDTH 14.1 % (11.6-14.6); WHITE BLOOD COUNT 11.9 x1000/uL (4.5-11.0)
[2023-08-09 07:42] LABS: DIFFERENTIAL COMMENT 1
[2023-08-09 08:03] LABS: CALCIUM 8.5 mg/dL (8.7-10.4); CARBON DIOXIDE 32 mEq/L (21-32); CHLORIDE 104 mEq/L (98-107); GLUCOSE 115 mg/dL (70-105); POTASSIUM 4.7 mEq/L (3.5-5.1); SODIUM 141 mEq/L (136-145); UREA NITROGEN BLOOD 31 mg/dL (9-23)
[2023-08-09 08:44] VITALS: BP 90/51; PULSE 64; RESP 18; TEMP 96.1
[2023-08-09] MEDS: ASPIRIN 81MG EC TABLET PO SCH (09:00)
[2023-08-09] MEDS: DEXAMETHASONE 4MG/ML 1ML VIAL IV SCH (09:09)
[2023-08-09] MEDS: MIDODRINE HCL 5MG TABLET PO SCH ×3 (09:15→18:00)
[2023-08-09 12:16] VITALS: BP 98/57; PULSE 63; RESP 18; TEMP 96.8
[2023-08-09] MEDS: ENOXAPARIN 30MG/0.3ML SYR SUBCUT SCH (12:52)
[2023-08-09] MEDS: ACETAMINOPHEN 325MG TABLET PO PRN (16:00)
[2023-08-09 16:28] VITALS: BP 97/41; PULSE 65; RESP 18; TEMP 97.3
[2023-08-09 20:00] VITALS: BP 113/54; PULSE 66; RESP 21; TEMP 97.3
[2023-08-09 21:04] LABS: PLATELET ESTIMATE SLIGHTLY INCREASED
[2023-08-09] MEDS: ATORVASTATIN CALCIUM 40MG TABLET PO SCH (21:53)
[2023-08-10] VITALS: BP 111/50; PULSE 68; RESP 20; TEMP 97.1
[2023-08-10 04:00] VITALS: BP 111/50; PULSE 68; RESP 20; TEMP 97.1
[2023-08-10 08:26] VITALS: BP 109/52; PULSE 61; RESP 18; TEMP 96.3
[2023-08-10] MEDS: MIDODRINE HCL 5MG TABLET PO SCH ×3 (09:44→17:42)
[2023-08-10] MEDS: ASPIRIN 81MG EC TABLET PO SCH (09:44)
[2023-08-10] MEDS: DEXAMETHASONE 4MG/ML 1ML VIAL IV SCH (09:44)
[2023-08-10 11:47] VITALS: BP 119/54; PULSE 59; RESP 18; TEMP 96.7
[2023-08-10 16:36] VITALS: BP 99/47; PULSE 61; RESP 18; TEMP 97.5
[2023-08-10 20:00] VITALS: BP 122/47; PULSE 60; RESP 17; TEMP 97.3
[2023-08-10] MEDS: ATORVASTATIN CALCIUM 40MG TABLET PO SCH (21:50)
[2023-08-11] VITALS: BP 115/51; PULSE 60; RESP 20; TEMP 97.1
[2023-08-11 04:00] VITALS: BP 107/48; PULSE 63; RESP 20; TEMP 97.3
[2023-08-11 08:00] VITALS: BP 112/46; PULSE 60; RESP 17; TEMP 96.8
[2023-08-11] MEDS: ASPIRIN 81MG EC TABLET PO SCH (08:46)
[2023-08-11] MEDS: DEXAMETHASONE 4MG/ML 1ML VIAL IV SCH (09:00)
[2023-08-11] MEDS: MIDODRINE HCL 5MG TABLET PO SCH ×2 (09:04→13:15)
[2023-08-11 12:00] VITALS: BP 114/46; PULSE 60; RESP 18; TEMP 97.4
[2023-08-11 14:27] VITALS: BP 114/46; PULSE 60; TEMP 98.4; O2SAT 97
== END 2023-08-11 18:17 | disposition home health service (06) | DRG 871 ==
LOC: ER 17:17 → MICUSO 19:00 → EDBEDREQ 19:03 → EDBEDREQTM 19:03 → EDBEDREQSVC 19:03 → MICUSO 07-29 15:33 → CANBEDREQ 07-31 11:22 → 5EST 07-31 23:50 → 5WST 08-07 08:41 → 7WST 08-08 09:32
PROVIDERS: ADMIT Internal Medicine; ATTEND Internal Medicine
PROC: 02HV33Z Insertion of Infusion Device into Superior Vena Cava, Percutaneous Approach (ICD-10-PCS; principal; 2023-07-31)
PROC: B548ZZA Ultrasonography of Superior Vena Cava, Guidance (ICD-10-PCS; 2023-07-31)
DX: A41.89 Other specified sepsis (principal); G92.8 Other toxic encephalopathy; J96.01 Acute respiratory failure with hypoxia; J12.82 Pneumonia due to coronavirus disease 2019; R65.21 Severe sepsis with septic shock; I21.A1 Myocardial infarction type 2; U07.1 COVID-19; M62.82 Rhabdomyolysis; N39.0 Urinary tract infection, site not specified; D68.59 Other primary thrombophilia; I42.0 Dilated cardiomyopathy; I50.22 Chronic systolic (congestive) heart failure; Z68.1 Body mass index [BMI] 19.9 or less, adult; N17.9 Acute kidney failure, unspecified; J44.0 Chronic obstructive pulmonary disease with (acute) lower respiratory infection; E78.00 Pure hypercholesterolemia, unspecified; G40.909 Epilepsy, unspecified, not intractable, without status epilepticus; F03.90 Unspecified dementia, unspecified severity, without behavioral disturbance, psychotic disturbance, mood disturbance, and anxiety; R62.7 Adult failure to thrive; I11.0 Hypertensive heart disease with heart failure; I25.5 Ischemic cardiomyopathy; I49.5 Sick sinus syndrome; D64.9 Anemia, unspecified; D72.821 Monocytosis (symptomatic); I35.1 Nonrheumatic aortic (valve) insufficiency; R13.12 Dysphagia, oropharyngeal phase; Z78.1 Physical restraint status; Z78.9 Other specified health status; Z79.82 Long term (current) use of aspirin; Z79.899 Other long term (current) drug therapy; Z86.73 Personal history of transient ischemic attack (TIA), and cerebral infarction without residual deficits; Z87.01 Personal history of pneumonia (recurrent); Z87.440 Personal history of urinary (tract) infections; Z93.1 Gastrostomy status; Z95.810 Presence of automatic (implantable) cardiac defibrillator
CPT/HCPCS: 36415; 36573; 71045; 80048; 80053; 80076; 80202; 80305; 80320; 81003; 82140; 82550; 82607; 82728; 82746; 82962; 83540; 83550; 83605; 83735; 84145; 84439; 84443; 84484; 85025; 85027; 85044; 86705; 86709; 87340; 87426; 87804; 92610; 93005; 97162; 99291; C1725; C1893; C9803; J0696; J1100; J1650; J2543; J3370; J3490; J7060; P9041; G0480